=== PATIENT | female | born 1960 | race Caucasian/White ===

== ENCOUNTER 2023-04-07 12:42 | Inpatient (IN) | payer OTHER ==
[~2023-04-07] VITALS: Ht 157.5 cm; Wt 87.2 kg
[2023-04-07 12:42] VITALS: BP_SYST 167
[2023-04-07] MEDS ORDERED: iohexoL 350 mgI/mL, 100 ML INFUS..BTL IV ONE (13:01)
[2023-04-07 13:22] LABS: BASOPHILS % (AUTO) 0.4 % (0.0-2.0); EOSINOPHILS # (AUTO) 0.1 K/uL (0.0-0.4); HEMATOCRIT 41.6 % (36-48); HEMOGLOBIN 14.3 g/dL (12.0-16.0); LYMPHOCYTES # (AUTO) 1.7 K/uL (1.0-5.5); LYMPHOCYTES % (AUTO) 21.8 % (20.5-51.5); MEAN CORPUSCULAR HEMOGLOBIN 30 pg (27-31); MEAN CORPUSCULAR HGB CONC 34 % (32-36); MEAN CORPUSCULAR VOLUME 86 fL (79.0-98.0); MONOCYTES # (AUTO) 0.6 K/uL (0.0-1.0); MONOCYTES % (AUTO) 7.5 % (1.7-9.3); NEUTROPHILS # (AUTO) 5.5 K/uL (1.8-7.7); NEUTROPHILS % (AUTO) 69.3 % (40.0-70.0); PLATELET COUNT (AUTO) 212 K/uL (130-430); RED BLOOD CELL COUNT(AUTO) 4.84 MIL/uL (4.2-6.2); RED CELL DISTRIBUTION WIDTH 13.8 % (9.0-15.0)
[2023-04-07 13:31] LABS: CALCIUM 9.3 mg/dL (8.4-11.0); CREATININE 0.78 mg/dL (0.55-1.30)
[2023-04-07 13:35] LABS: PROTHROMBIN TIME 10.1 SECS (9.5-12.5)
[2023-04-07 13:37] LABS: TOTAL BILIRUBIN 0.5 mg/dL (0.0-1.0)
[2023-04-07] MEDS ORDERED: LABETALOL HCL 20 MG/4 ML CARTRIDGE IVP ONE ×2 (14:00→14:30)
[2023-04-07] MEDS ORDERED: dilTIAZem HCL IVP 5 MG/ML VIAL IVP ONE ×2 (14:45→18:00)
[2023-04-07] MEDS ORDERED: ASPIRIN 325 MG TABLET PO ONE (14:45)
[2023-04-07] MEDS ORDERED: CLOPIDOGREL BISULFATE 75 MG TABLET PO ONE (16:45)
[2023-04-07] MEDS ORDERED: ASPIRIN 325 MG TABLET ONE (17:57)
[2023-04-07] MEDS ORDERED: D5/0.45 NS 1,000 ML IV ONE (19:15)
[2023-04-07 21:24] VITALS: BP_SYST 190
[2023-04-07] MEDS: hydrALAZINE HCL 20 MG/ML VIAL IVP PRN (22:28)
[2023-04-08 00:36] VITALS: BP_SYST 122
[2023-04-08 07:08] LABS: BASOPHILS % (AUTO) 0.3 % (0.0-2.0); EOSINOPHILS # (AUTO) 0.1 K/uL (0.0-0.4); EOSINOPHILS % (AUTO) 1.6 % (0.0-4.0); HEMATOCRIT 41.8 % (36-48); HEMOGLOBIN 14.1 g/dL (12.0-16.0); LYMPHOCYTES # (AUTO) 1.7 K/uL (1.0-5.5); LYMPHOCYTES % (AUTO) 21.3 % (20.5-51.5); MEAN CORPUSCULAR HEMOGLOBIN 29 pg (27-31); MEAN CORPUSCULAR HGB CONC 34 % (32-36); MEAN CORPUSCULAR VOLUME 87 fL (79.0-98.0); MONOCYTES # (AUTO) 0.7 K/uL (0.0-1.0); MONOCYTES % (AUTO) 9.2 % (1.7-9.3); NEUTROPHILS # (AUTO) 5.4 K/uL (1.8-7.7); NEUTROPHILS % (AUTO) 67.6 % (40.0-70.0); PLATELET COUNT (AUTO) 233 K/uL (130-430); RED BLOOD CELL COUNT(AUTO) 4.82 MIL/uL (4.2-6.2)
[2023-04-08 07:19] LABS: ALBUMIN 3.5 g/dL (3.4-4.8); CALCIUM 8.9 mg/dL (8.4-11.0); CREATININE 0.73 mg/dL (0.55-1.30); TOTAL BILIRUBIN 0.7 mg/dL (0.0-1.0)
[2023-04-08 07:27] LABS: THYROID STIMULATING HORMONE 3.58 uIu/mL (0.36-3.74)
[2023-04-08 07:47] LABS: PROTHROMBIN TIME 10.4 SECS (9.5-12.5)
[2023-04-08 08:04] VITALS: BP_SYST 175
[2023-04-08] MEDS: hydrALAZINE HCL 20 MG/ML VIAL IVP PRN (08:30)
[2023-04-08] MEDS ORDERED: ASPIRIN 81 MG TAB.CHEW PO SCH (09:00)
[2023-04-08] MEDS ORDERED: ATORVASTATIN 20 MG TABLET PO ONE (09:30)
[2023-04-08] MEDS ORDERED: METOPROLOL SUCCINATE 50 MG TAB.SR.24H (TOPROL XL) PO ONE (09:30)
[2023-04-08] MEDS ORDERED: POTASSIUM CHLORIDE 20 MEQ TAB.PRT.SR PO ONE (09:30)
[2023-04-08 11:25] VITALS: BP_SYST 133
[2023-04-08 15:06] VITALS: BP_SYST 133
[2023-04-08 15:19] VITALS: BP_SYST 153
[2023-04-08] MEDS ORDERED: hydrALAZINE HCL 20 MG/ML VIAL IVP ONE (19:15)
[2023-04-09] MEDS ORDERED: ATORVASTATIN 20 MG TABLET PO SCH ×2 (09:00)
[2023-04-09] MEDS ORDERED: METOPROLOL SUCCINATE 50 MG TAB.SR.24H (TOPROL XL) PO SCH (09:00)
== END 2023-04-08 20:00 | disposition short-term general hospital (02) | DRG 66 ==
LOC: SED 12:42 → STU 19:15
PROVIDERS: ADMIT Internal Medicine; ATTEND Internal Medicine
DX: I63.49 Cerebral infarction due to embolism of other cerebral artery (principal); R29.702 NIHSS score 2; I10 Essential (primary) hypertension; E78.5 Hyperlipidemia, unspecified; R47.81 Slurred speech; R29.810 Facial weakness; Z20.822 Contact with and (suspected) exposure to COVID-19
CPT/HCPCS: 36415; 70450-TC; 70496; 70498; 70551; 71045; 76376; 80053; 80061; 82465; 82550; 82962; 84443; 85025; 85610-TC; 85730-TC; 93005; 93306; 97116-GP; 97163-GP; 97530-GP; G0378; J0360; J3490; Q9967